=== PATIENT | female | born 1995 | race Caucasian/White ===

== ENCOUNTER 2021-08-09 14:13 | Emergency (ER) | payer SELFPAY ==
[~2021-08-09] VITALS: Ht 170.2 cm; Wt 121.6 kg
[2021-08-09 14:32] VITALS: BP 136/74
[2021-08-09] MEDS ORDERED: LIDOCAINE MPF 1% 10 MG/ML VIAL INJ ONE ×2 (15:15)
[2021-08-09] MEDS ORDERED: BACITRACIN OINT 500 UNITS/GM PKT TP ONE (15:15)
[2021-08-09] MEDS ORDERED: NAPR-54 PO (16:09)
--- NOTE | 2021-08-09 16:09 | NUR ---
APPLIED BACITRACIN TO PT'S FINGER AND WRAPPED WITH NON-ADHERENT GAUZE PAD AND GAUZE ROLL.
--- NOTE | 2021-08-09 16:33 | NUR ---
Patient discharged with v/s stable. Written and verbal after care instructions given and explained. Patient alert, oriented and verbalized understanding of instructions. Ambulatory with steady gait. All questions addressed prior to discharge. ID band removed. Patient advised to follow up with PMD. Rx of naproxen (script) given. Patient educated on indication of medication including possible reaction and side effects. Opportunity to ask questions provided and answered.
[2021-08-09 16:34] VITALS: BP 136/74
== END 2021-08-09 16:32 | disposition home or self-care (01) ==
LOC: MED 14:13
DX: S61.102A Unspecified open wound of left thumb with damage to nail, initial encounter (principal); X58.XXXA Exposure to other specified factors, initial encounter; Y93.89 Activity, other specified; Y92.89 Other specified places as the place of occurrence of the external cause; Y99.8 Other external cause status
CPT/HCPCS: 11730; 99284; J2001